=== PATIENT | female | born 1940 | race Caucasian/White ===

== ENCOUNTER 2018-06-20 08:04 | Observation (INO) ==
[2018-06-20] MEDS ORDERED: Chlorhexidine Gluconate 2% 1 Pack (2 Cloths) TOPICAL SCH (09:00)
[2018-06-20] MEDS ORDERED: ceFAZolin 2 GM IV; once IV.SIG SCH (09:00)
[2018-06-20] MEDS ORDERED: Heparin - SQ 10,000 UNITS/ML Vial SQ SCH (09:00)
[2018-06-20] MEDS ORDERED: Sodium Chlor 0.9% Inj 500 ML IV.SIG SCH (09:00)
[2018-06-20] MEDS ORDERED: Metoprolol Tartrate 25 MG Tablet PO SCH (09:00)
[2018-06-20] MEDS ORDERED: Sugammadex Inj 200 MG/2 ML Vial IV.PUSH ONE (11:37)
[2018-06-20] MEDS ORDERED: Famotidine PF Inj 20 MG/2 ML Vial ONE (11:37)
[2018-06-20] MEDS ORDERED: Phenylephrine/NS 1000 MCG/10ML Syringe IV.PUSH ONE (12:00)
[2018-06-20] MEDS ORDERED: Glycopyrrolate Inj 1 MG/5 ML Syringe IV.PUSH ONE (12:00)
[2018-06-20] MEDS ORDERED: Electrolytes R/Dextrose 5% Inj 1,000 ML IV.SIG ONE (12:00)
[2018-06-20] MEDS ORDERED: Neostigmine Inj 5 MG/5 ML Syringe IV.PUSH ONE (12:00)
[2018-06-20] MEDS ORDERED: Lidocaine PF 1% Inj 5 ML Syringe INFILTRATN ONE (12:00)
[2018-06-20] MEDS ORDERED: Lidocaine 1%/Epinephrine 1:100,000 Inj 30 ML Vial ONE (12:30)
[2018-06-20] MEDS ORDERED: Methylene Blue Inj 100 MG/10 ML Vial IV.PUSH SCH (13:00)
[2018-06-20] MEDS ORDERED: LORazepam 0.5 MG Tablet PO PRN (16:00)
[2018-06-20] MEDS ORDERED: fentaNYL Citrate Inj 100 MCG/2 ML Ampul ONE (16:19)
[2018-06-20] MEDS ORDERED: KCL 20 mEq/D5W/NaCl 0.45% Inj 1,000 ML ONE (16:30)
[2018-06-20] MEDS: KCL 20 mEq/D5W/NaCl 0.45% Inj 1,000 ML IV.CONT SCH (16:43)
[2018-06-20] MEDS ORDERED: Ketorolac Inj 30 MG/ML (IVP) Vial ONE (17:00)
--- NOTE | 2018-06-20 17:27 | MP ---
cc: Gloria Kenney MD, Zachary S MD McCollum, Alfonso DATE OF OPERATION: 06/20/2018 PREOPERATIVE DIAGNOSES: 1. 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 2. Enlarged uterus. POSTOPERATIVE DIAGNOSES: 1. Grade 1-2 endometrial 1 adenocarcinoma. 2. Enlarged uterus. PROCEDURE PERFORMED: Robotic-assisted laparoscopic hysterectomy, bilateral salpingo-oophorectomy. SURGEON: Gloria Kenney MD RECIPROCATING DRILL OPERATOR: Filemon kimcirculation assistant ANESTHESIA: General endotracheal anesthesia. ESTIMATED BLOOD LOSS: 150 mL INTRAVENOUS FLUIDS: 1500 mL URINE OUTPUT: 150 mL INDICATIONS FOR PROCEDURE: This is a 77-year-old female, postmenopausal bleeding, thickened endometrial stripe. Biopsy showed a grade 1 to grade 2 endometrial adenocarcinoma. She was counseled regarding options and was in favor of definitive surgical management. She has been on progesterone for a number of weeks pending her capacity to be scheduled for surgery, which she is able to do now. She was seen in the preop holding area, where findings and plan of care are again discussed. Questions were asked and answered. She expressed good understanding and would like to move forward with surgery. FINDINGS: Uterine cavity sounded to 11 cm. It is symmetrically enlarged, with changes suggestive of leiomyomas and possible adenomyosis. The tubes and ovaries grossly appeared normal. There was no appreciably enlarged pelvic or periaortic lymph nodes. In the peritoneal cavity, the peritoneal surfaces are smooth. There are no implants. Large and small bowel and adjacent mesentery are without implants. Liver and diaphragm edges were smooth. The uterus once removed was evaluated by pathologist. We saw no overt evidence of persistent disease. There was certainly no invasive cancer detected. There was some progestational effect on the endometrium that looked to be most consistent with complex atypical hyperplasia. DESCRIPTION OF PROCEDURE: She was taken to the operating room and placed in dorsal lithotomy position, after general endotracheal anesthesia was administered. A timeout was undertaken. She was identified by site, recognition and hospital ID bracelet and the proposed procedure was reviewed and confirmed. She was carefully positioned in padded Jake stirrups. Her arms were padded and secured to the sides. She was further secured to the operating table with egg crate padding and taped in a cross chest/over the shoulder fashion. All sites noted to be properly aligned with no malalignment or pressure points. She was prepped and draped in usual sterile fashion. Placed in lithotomy position. The cervix grasped. Uterine cavity sounded. Cervix dilated. Large VCare manipulator inserted and secured in usual fashion. Munoz catheter placed in the bladder. She was returned to low lithotomy position. Change of sterile gloves was undertaken. We confirmed that an orogastric tube was in the stomach on suction. With manual elevation of the abdominal wall and direct laparoscopic visualization, 5 mm cannula placed in the left upper quadrant, carbon dioxide gas was insufflated and an atraumatic entry was confirmed. 8 mm cannula was placed in the right upper quadrant, left lateral quadrant and sharp dissection was used to take down some omentum that was adherent to the anterior abdominal wall, after which a 12 mm cannula was placed in the midline above the umbilicus. Peritoneal washings were obtained for cytology. The anatomy was explored with findings as described above. She was placed in Trendelenburg position. The small bowel was folded back on its mesenteric root and 3 Ray-Uzair sponges were placed at the root of the small bowel mesentery. The robotic system was brought into the operative field, attached in the usual fashion. Monopolar scissors, fenestrated bipolar forceps and ProGrasp manipulators were placed on arms number 1, 2, and 3 respectively and I took my place at the surgeon's console. Right round ligament isolated, cauterized, transected. The anterior and posterior leaves of the broad ligament were opened. The right ureter was identified. The right infundibulopelvic ligament was isolated. The intervening peritoneum was opened. The infundibulopelvic ligament was isolated to the level of the pelvic brim, where it was cauterized and transected. Posterior peritoneum opened along the right side of the uterus and cervix and the right vesicouterine peritoneum was dissected off the lower uterine segment and cervix. The right uterine vessels were skeletonized and cauterized. Attention was directed to the left side, where the left round ligament was isolated, cauterized and transected. The anterior and posterior leafs of the broad ligament were opened. The left ureter was identified. The left infundibulopelvic ligament was isolated. The intervening peritoneum was opened. The infundibulopelvic ligament was isolated to the level of the pelvic brim, where it was cauterized and transected. The posterior peritoneum opened on the left side of the uterus and cervix, and the left the vesicouterine peritoneum was dissected off the lower uterine segment and cervix. The left uterine vessels were skeletonized and the uterine vessels were cauterized. There was good blanching of the uterus since the major blood supply has now been secured and the left uterine vessels were transected and the cardinal, paracervical and uterosacral ligaments were isolated, cauterized and transected in a stepwise fashion along the left side. Attention was redirected towards the right side, where the right uterine vessels were transected. The right cardinal, paracervical and uterosacral ligaments were isolated, cauterized and transected in a stepwise fashion. Circumferential colpotomy was performed following the cap of the [employer] manipulator, the cervix from the upper vagina and the specimen was withdrawn transvaginally, which included uterus, cervix, tubes and ovaries and the pneumo-occluder balloon was placed in the vagina to maintain pneumoperitoneum. Instruments 1 and 3 exchanged for needle drivers as an 0 Vicryl suture was introduced. The vaginal cuff was supported at the left corner, full-thickness closure including the posterior peritoneum edge of the uterosacral ligament. Closure was held on countertraction as a running continuous full thickness closure was carried across the vaginal apex to the contralateral corner, but were similarly fixed, secured and tied. The needle was cut and removed. Pelvis thoroughly irrigated. Small bleeders rendered hemostatic with bipolar cautery. The integrity of the bladder was confirmed by filling the bladder with saline dyed with methylene blue. It distended nicely under pressure. There were no thin areas, no blue visible, certainly no extravasation of dye. There was good margin between the bladder edge and the vaginal cuff suture line. Good peristalsis of ureters bilaterally and the bladder was drained. Pelvis was irrigated to assist in continued hemostasis. Hemostatic Ninoska powder was placed across the cuff and pelvic sidewalls. The preliminary pathology came back showing no residual cancer. Accordingly, it was felt that all reasonable surgical objectives had been completed and, therefore, the instruments were removed. The robotic system was disengaged from the operative field. I reentered the bedside under sterile condition. Each of the 3 Ray-Uzair sponges were removed. They were removed and inspected and noted to be removed in their entirety. Inspection confirmed that there were no remaining foreign objects in the peritoneal cavity. Preliminary counts were correct. The 12 mm fascial defect was closed with 0 Vicryl suture with a fascial closure apparatus, tied securely, rendered the fascia completely airtight and hemostatic. The remaining cannulas were withdrawn. Carbon dioxide gas was removed. 3-0 Vicryl subcutaneous, 3-0 Vicryl subcuticular with Steri-Strips were used to close these incisions. She was returned to dorsal lithotomy position. Pelvic exam confirmed the vaginal cuff was well-supported, hemostatic. There were no vaginal lacerations. There was some superficial mucosal irritation in the distal vagina and introitus and the remaining Ninoska hemostatic powder with topical focal silver nitrate was used, which rendered this completely hemostatic. There were no remaining foreign objects in the vagina. Final counts were correct. She was returned to dorsal supine position and was pending reversal of anesthesia when I left the operating to precede her to the postanesthesia care unit. MD ANIA Sosa/SAMMY , 04:44 PM , 05:26 PM
[2018-06-20] MEDS: Ketorolac Inj 30 MG/ML (IVP) Vial IV.PUSH SCH (22:40)
[2018-06-21] MEDS: KCL 20 mEq/D5W/NaCl 0.45% Inj 1,000 ML IV.CONT SCH (03:12)
[2018-06-21 03:54] VITALS: RESP 18
[2018-06-21 05:57] LABS: Baso % (Auto) 0.1 % (0.0-2.0); Hematocrit 36.2 % (35.0-46.0); Hemoglobin 12.2 gm/dL (11.6-15.3); Lymph # (Auto) 0.8 th/mm3 (1.0-4.8); Lymph % (Auto) 5.2 % (9.0-44.0); Mean Corpuscular HGB Conc 33.6 % (32.0-36.0); Mean Corpuscular Hemoglobin 31.4 pg (27.0-34.0); Mean Corpuscular Volume 93.4 fL (80.0-100.0); Mean Platelet Volume 8.3 fL (7.0-11.0); Mono # (Auto) 1.2 th/mm3 (0.0-0.9); Mono % (Auto) 7.5 % (0.0-8.0); Neut # (Auto) 13.7 th/mm3 (1.8-7.7); Neut % (Auto) 87.2 % (16.0-70.0); Platelet Count 241 th/mm3 (150-450); Red Blood Count 3.88 mil/mm3 (4.00-5.30); Red Cell Distribution Width 15.2 % (11.6-17.2); White Blood Count 15.7 th/mm3 (4.0-11.0)
[2018-06-21 06:21] LABS: Calcium 8.5 mg/dL (8.5-10.1); Carbon Dioxide 26.8 meq/L (21.0-32.0); Potassium 3.7 meq/L (3.5-5.1)
--- NOTE | 2018-06-21 07:22 | MD ---
cc: Gloria Kenney MD, Zachary S MD McCollum, Alfonza MD DATE OF DISCHARGE: 06/21/2018 PROCEDURE: 06/20/2018, robotic-assisted laparoscopic hysterectomy and bilateral salpingo-oophorectomy. DIAGNOSIS: Endometrial cancer. HOSPITAL COURSE: She did well in the early postoperative period. Hemodynamically stable. Adequate pain control, oral intake, Munoz catheter removed pending voiding. Ins and outs 2550/1175. Labs show an H and H of 12.2 and 36, potassium 3.7, creatinine is 1.49 with a known preexisting underlying renal disease. PHYSICAL EXAMINATION: VITAL SIGNS: She is afebrile, respirations 16-18, pulse 86-102, blood pressure 99-137/45-67. GENERAL: Comfortable, in no acute distress. LUNGS: Clear. Mild rales at the bases. CARDIOVASCULAR: Regular rate and rhythm. ABDOMEN: Soft. Incision is clean and dry. GYNECOLOGIC: No bleeding. EXTREMITIES: Nontender. SCDs intact. ASSESSMENT: Postoperative day number one. Findings at the time of surgery and preliminary pathology discussed, activities and restrictions were reviewed, questions were asked and answered. She expressed a good understanding. PLAN: I anticipate she will meet criteria for discharge to home today. She is to resume her prior medications. She will have a prescription for Percocet for pain if needed and she is to contact our office to schedule a followup within 2 weeks or contact our office sooner should she have any questions between now and the time of scheduled followup. Gloria Kenney MD KLM/DL , 07:08 AM , 07:21 AM
[2018-06-21] MEDS: Ketorolac Inj 30 MG/ML (IVP) Vial IV.PUSH SCH (07:28)
[2018-06-21 08:14] VITALS: BP 114/69; PULSE 85; TEMP 97.8; O2SAT 100
[2018-06-21] MEDS ORDERED: Lisinopril 20 MG Tablet PO SCH (09:00)
[2018-06-21] MEDS ORDERED: hydroCHLOROthiazide 25 MG Tablet PO SCH (09:00)
== END 2018-06-21 10:12 | disposition home or self-care (01) ==
LOC: HSDC 08:04 → H1EA 08:04 → HSDI 08:04 → H1EA 17:26
PROVIDERS: ADMIT Obstetrics & Gynecology Gynecologic Oncology; ATTEND Obstetrics & Gynecology Gynecologic Oncology